=== PATIENT | male | born 1940 | race Caucasian/White ===

== ENCOUNTER 2017-05-23 12:09 | Inpatient (IN) | payer MEDICARE ==
[~2017-05-23] VITALS: Ht 185.4 cm; Wt 83.6 kg
[2017-05-23] MEDS ORDERED: IPRATROPIUM/ALBUTEROL SULFATE 3 ML SOLUTION IH ONE ×3 (12:36→22:26)
[2017-05-23 13:29] LABS: BASOPHILS % (AUTO) 0.2 % (0.0-5.0); EOSINOPHILS % (AUTO) 0.7 % (0.0-8.0); LYMPHOCYTES % (AUTO) 13.8 % (21.0-51.0); MONOCYTES % (AUTO) 11.9 % (3.0-13.0); NEUTROPHILS % (AUTO) 73.4 % (40.0-77.0); NUCLEATED RED BLOOD CELLS 0.1 % (0.0-0.19); PLATELET COUNT (AUTO) 230 K/uL (130-400); RED BLOOD CELL COUNT(AUTO) 4.54 MIL/uL (4.50-6.20); RED CELL DISTRIBUTION WIDTH 13.1 % (11.0-15.5); WHITE BLOOD COUNT (AUTO) 7.5 K/uL (4.8-10.8)
[2017-05-23] MEDS ORDERED: METHYLPREDNISOLONE SOD SUCC 40MG/ML 1ML ONE (13:41)
[2017-05-23 13:44] LABS: CREATININE 1.1 mg/dL (0.5-1.5); POTASSIUM 4.1 mmol/L (3.5-5.1)
[2017-05-23] MEDS ORDERED: SODIUM CHLORIDE 0.9% 1000ML 3,000 ML IV ONE (13:52)
[2017-05-23 13:57] LABS: ALBUMIN 3.4 g/dL (3.5-5.0); BILIRUBIN,TOTAL 0.4 mg/dL (0.2-1.0); CREATINE KINASE MB 0.7 ng/mL (0.5-3.6); TOTAL PROTEIN, SERUM 7.7 g/dL (6.0-8.3)
[2017-05-23 14:12] LABS: B-TYPE NATRIURETIC PEPTIDE 445 pg/mL (0-100)
[2017-05-23] MEDS ORDERED: ALBUTEROL SULFATE 0.083% 2.5 MG/3 ML INH IH ONE (14:59)
[2017-05-23 16:38] LABS: APPEARANCE,URINE Clear (CLEAR); BILIRUBIN,URINE Negative (NEGATIVE); COLOR,URINE Yellow (YELLOW); GLUCOSE, URINE (UA) Negative (NEGATIVE); KETONES,URINE Negative (NEGATIVE); LEUKOCYTE ESTERASE ,URINE Trace (NEGATIVE); NITRATE,URINE Negative (NEGATIVE); OCCULT BLOOD,URINE Negative (NEGATIVE); PROTEIN,URINE POS 1+ (NEGATIVE); UROBILINOGEN,URINE 0.2 mg/dL (0.2-1.0)
[2017-05-23 17:24] LABS: BACTERIA,URINE Rare /HPF (None Seen); RBC,URINE 0-1 /HPF (0-1)
[2017-05-23 17:25] LABS: MUCUS,URINE Few LPF (None Seen); SQUAMOUS EPITHELIAL CELL,UR Rare /LPF (0-2)
[2017-05-23] MEDS ORDERED: ACETAMINOPHEN EXTRA STRENGTH 500 MG TABLET PO PRN (17:45)
[2017-05-23] MEDS ORDERED: CEFTRIAXONE 1GM/D5W 50ML 50 ML IV SCH (17:45)
[2017-05-23] MEDS ORDERED: METHYLPREDNISOLONE SOD SUCC 40MG/ML 1ML IVP SCH (17:45)
[2017-05-23] MEDS ORDERED: ONDANSETRON HCL 4 MG/2 ML VIAL IVP PRN (17:45)
[2017-05-23 21:48] LABS: CREATINE KINASE MB < 0.5 ng/mL (0.5-3.6); CREATINE KINASE, TOTAL 84 U/L (21-232); MYOGLOBIN 55 ng/mL (10-92); TROPONIN I < 0.04 ng/mL (0.00-0.06)
[2017-05-23] MEDS ORDERED: CEFTRIAXONE SODIUM 1 GM ONE (23:03)
[2017-05-23] MEDS ORDERED: AZITHROMYCIN 500MG+NS 250ML 250 ML IV ONE (23:03)
[2017-05-23] MEDS ORDERED: ENOXAPARIN SODIUM 40 MG/0.4 ML SYRINGE SQ ONE (23:03)
[2017-05-24] MEDS ORDERED: IPRATROPIUM 0.5 MG/2.5 ML INH IH ONE ×3 (01:09→09:48)
[2017-05-24 05:57] LABS: CREATININE 1.1 mg/dL (0.5-1.5); MAGNESIUM 2.1 mg/dL (1.80-2.40); POTASSIUM 3.7 mmol/L (3.5-5.1)
[2017-05-24 06:52] LABS: CREATINE KINASE MB < 0.5 ng/mL (0.5-3.6); CREATINE KINASE, TOTAL 75 U/L (21-232); MYOGLOBIN 75 ng/mL (10-92); TROPONIN I < 0.04 ng/mL (0.00-0.06)
[2017-05-24] MEDS ORDERED: METHYLPREDNISOLONE SOD SUCC 40MG/ML 1ML ONE (07:49)
[2017-05-24] MEDS ORDERED: ENOXAPARIN SODIUM 30 MG/0.3 ML SQ SCH (09:00)
[2017-05-24 10:17] LABS: CREATINE KINASE MB 0.7 ng/mL (0.5-3.6); CREATINE KINASE, TOTAL 78 U/L (21-232); MYOGLOBIN 113 ng/mL (10-92); TROPONIN I < 0.04 ng/mL (0.00-0.06)
[2017-05-24] MEDS ORDERED: ASPIRIN 325MG EC TAB 325 MG TABLET.DR PO ONE (10:28)
[2017-05-24] MEDS ORDERED: PANTOPRAZOLE SODIUM 40 MG TABLET.DR PO ONE (10:28)
[2017-05-24] MEDS ORDERED: FUROSEMIDE 10 MG/ML 2ML VIAL ONE (10:29)
[2017-05-24 12:45] VITALS: BP 126/85
[2017-05-24] MEDS ORDERED: METO25TA6 PO (13:49)
[2017-05-24] MEDS ORDERED: LOVA20TA3 PO (13:49)
[2017-05-24] MEDS ORDERED: MAGN100T5 PO (13:49)
[2017-05-24] MEDS ORDERED: OMEG-53 PO (13:49)
[2017-05-24] MEDS: IPRATROPIUM 0.5 MG/2.5 ML INH IH PRN ×3 (14:05→22:00)
[2017-05-24] MEDS: FUROSEMIDE 10 MG/ML 4ML VIAL IV SCH ×3 (14:31→17:44)
[2017-05-24] MEDS: AZITHROMYCIN 500MG+NS 250ML 250 ML IV SCH ×2 (14:31→22:31)
[2017-05-24] MEDS: PANTOPRAZOLE SODIUM 40 MG TABLET.DR PO SCH (14:32)
[2017-05-24] MEDS: ASPIRIN 325MG EC TAB 325 MG TABLET.DR PO SCH (14:32)
[2017-05-24] MEDS: METHYLPREDNISOLONE SOD SUCC 125MG/2ML VIAL IVP SCH ×2 (14:32→17:44)
[2017-05-24] MEDS ORDERED: POTASSIUM CHLORIDE 10% ELIXIR 20 MEQ/15 ML UDCUP PO PRN (15:00)
[2017-05-24] MEDS ORDERED: POTASSIUM CHLORIDE 20MEQ/100ML 100 ML IV PRN (15:00)
[2017-05-24] MEDS ORDERED: LIDOCAINE HCL-MPF 1% 2ML VIAL IVP PRN (15:00)
[2017-05-24] MEDS ORDERED: POTASSIUM CHLORIDE 20 MEQ ERTAB PO ONE (15:39)
[2017-05-24 16:30] VITALS: BP 120/80
[2017-05-24] MEDS: POTASSIUM CHLORIDE 20 MEQ ERTAB PO PRN (17:50)
[2017-05-24 19:43] VITALS: BP 131/81
[2017-05-24] MEDS ORDERED: CEFTRIAXONE SODIUM 1 GM IVP SCH (21:00)
[2017-05-24] MEDS: ENOXAPARIN SODIUM 80 MG/0.8 ML SQ SCH (21:02)
[2017-05-24 23:48] VITALS: BP 126/72
[2017-05-25] MEDS: METHYLPREDNISOLONE SOD SUCC 125MG/2ML VIAL IVP SCH ×3 (02:10→17:42)
[2017-05-25 03:49] VITALS: BP 116/65
[2017-05-25] MEDS: FUROSEMIDE 10 MG/ML 4ML VIAL IV SCH ×2 (04:59→17:42)
[2017-05-25] MEDS: IPRATROPIUM 0.5 MG/2.5 ML INH IH PRN ×2 (06:33→09:59)
[2017-05-25] MEDS: PANTOPRAZOLE SODIUM 40 MG TABLET.DR PO SCH (06:51)
[2017-05-25 07:41] VITALS: BP 115/58
[2017-05-25 08:03] LABS: ABG BASE EXCESS 2.2 mmol/L (-2.0-3.0); ABG HCO3 25.6 mmol/L (21.0-28.0); ABG OXYGEN SATURATION 93.4 % (95.0-99.0); ABG PCO2 36 mmHg (35-48)
[2017-05-25] MEDS ORDERED: DILTIAZEM HCL 125 MG/25 ML 125 MG in SODIUM CHLORIDE 0.9% 100 ML IV PRN (08:15)
[2017-05-25] MEDS ORDERED: DILTIAZEM HCL 5 MG/ML 5 ML VIAL IVP PRN (08:15)
[2017-05-25] MEDS: ENOXAPARIN SODIUM 40 MG/0.4 ML SYRINGE SQ SCH (09:00)
[2017-05-25] MEDS: ASPIRIN 325MG EC TAB 325 MG TABLET.DR PO SCH (09:09)
[2017-05-25] MEDS: ENOXAPARIN SODIUM 80 MG/0.8 ML SQ SCH ×2 (09:09→20:44)
[2017-05-25 11:15] VITALS: BP 112/66
[2017-05-25 16:29] VITALS: BP 117/77
[2017-05-25 19:31] VITALS: BP 132/76
[2017-05-25] MEDS: ATORVASTATIN CALCIUM 10 MG TABLET PO SCH (20:43)
[2017-05-25] MEDS: AZITHROMYCIN 500MG+NS 250ML 250 ML IV SCH (23:43)
[2017-05-26] VITALS (7 sets, daily range): BP systolic 90–131; BP diastolic 57–81
[2017-05-26] MEDS: METHYLPREDNISOLONE SOD SUCC 125MG/2ML VIAL IVP SCH ×2 (02:08→08:29)
[2017-05-26] MEDS: FUROSEMIDE 10 MG/ML 4ML VIAL IV SCH ×2 (05:17→17:01)
[2017-05-26] MEDS: IPRATROPIUM 0.5 MG/2.5 ML INH IH PRN ×5 (06:11→23:03)
[2017-05-26] MEDS: PANTOPRAZOLE SODIUM 40 MG TABLET.DR PO SCH (06:33)
[2017-05-26] MEDS: ASPIRIN 325MG EC TAB 325 MG TABLET.DR PO SCH (08:29)
[2017-05-26] MEDS: ENOXAPARIN SODIUM 80 MG/0.8 ML SQ SCH ×2 (08:34→22:06)
[2017-05-26] MEDS: ENOXAPARIN SODIUM 40 MG/0.4 ML SYRINGE SQ SCH (08:35)
[2017-05-26] MEDS ORDERED: GUAIFENESIN-CODEINE 5 ML SYRUP PO PRN (09:45)
[2017-05-26 10:00] LABS: HEMATOCRIT 41.6 % (42-54); MEAN CORPUSCULAR HEMOGLOBIN 32.1 pg (27.0-33.0); MEAN CORPUSCULAR HGB CONC 33.3 g/dL (32.0-36.0); MEAN CORPUSCULAR VOLUME 96.4 fL (79-99); PLATELET COUNT (AUTO) 272 K/uL (130-400); RED BLOOD CELL COUNT(AUTO) 4.31 MIL/uL (4.50-6.20); RED CELL DISTRIBUTION WIDTH 12.9 % (11.0-15.5); WHITE BLOOD COUNT (AUTO) 11.9 K/uL (4.8-10.8)
[2017-05-26 10:10] LABS: CREATININE 1.2 mg/dL (0.5-1.5); MAGNESIUM 2.3 mg/dL (1.80-2.40); PHOSPHORUS 4.2 mg/dL (2.5-4.9); POTASSIUM 3.5 mmol/L (3.5-5.1)
[2017-05-26] MEDS: LEVOFLOXACIN 750 MG/D5W 150 ML 150 ML IV SCH (13:05)
[2017-05-26] MEDS ORDERED: LIDOCAINE HCL-MPF 1% 2ML VIAL IVP PRN (15:15)
[2017-05-26] MEDS ORDERED: POTASSIUM CHLORIDE 20 MEQ ERTAB PO PRN (15:15)
[2017-05-26] MEDS ORDERED: POTASSIUM CHLORIDE 10% ELIXIR 20 MEQ/15 ML UDCUP PO PRN (15:15)
[2017-05-26] MEDS ORDERED: POTASSIUM CHLORIDE 20MEQ/100ML 100 ML IV PRN (15:15)
[2017-05-26] MEDS: POTASSIUM CHLORIDE 20 MEQ ERTAB PO PRN ×2 (15:36→17:01)
[2017-05-26] MEDS ORDERED: BUDESONIDE 0.5 MG/2 ML INH IH ONE (18:11)
[2017-05-26] MEDS: BUDESONIDE 0.5 MG/2 ML INH IH SCH (18:30)
[2017-05-26] MEDS: ATORVASTATIN CALCIUM 10 MG TABLET PO SCH (20:15)
[2017-05-26] MEDS: METHYLPREDNISOLONE SOD SUCC 40MG/ML 1ML IVP SCH (20:15)
[2017-05-26] MEDS: METOPROLOL TARTRATE 25 MG TAB PO SCH (20:15)
[2017-05-26] MEDS ORDERED: ENOXAPARIN SODIUM 80 MG/0.8 ML SQ ONE (22:03)
[2017-05-27 00:12] VITALS: BP 121/81
[2017-05-27 04:32] VITALS: BP 113/71
[2017-05-27 05:16] LABS: HEMATOCRIT 37.3 % (42-54); MEAN CORPUSCULAR HEMOGLOBIN 33.1 pg (27.0-33.0); MEAN CORPUSCULAR HGB CONC 34.6 g/dL (32.0-36.0); MEAN CORPUSCULAR VOLUME 95.5 fL (79-99); PLATELET COUNT (AUTO) 244 K/uL (130-400); RED BLOOD CELL COUNT(AUTO) 3.91 MIL/uL (4.50-6.20); RED CELL DISTRIBUTION WIDTH 12.5 % (11.0-15.5); WHITE BLOOD COUNT (AUTO) 9.3 K/uL (4.8-10.8)
[2017-05-27 05:34] LABS: POTASSIUM 3.7 mmol/L (3.5-5.1)
[2017-05-27 05:38] LABS: BAND NEUTROPHILS % (MANUAL) 7 % (0-2); EOSINOPHILS % (MANUAL) 2 % (1-6); LYMPHOCYTES % (MANUAL) 13 % (22-44); MAN.DIFF COMMENT-IMPRESSION MANUAL DIFFERENTIAL; MONOCYTES % (MANUAL) 6 % (2-9); SEGMENTED NEUTROPHILS % 72 % (40-70)
[2017-05-27 05:39] LABS: PLATELET MORPHOLOGY COMMENT ADEQUATE
[2017-05-27] MEDS: IPRATROPIUM 0.5 MG/2.5 ML INH IH PRN ×5 (06:05→22:08)
[2017-05-27] MEDS: BUDESONIDE 0.5 MG/2 ML INH IH SCH ×2 (06:17→19:41)
[2017-05-27] MEDS: POTASSIUM CHLORIDE 20 MEQ ERTAB PO PRN ×2 (07:04→15:40)
[2017-05-27] MEDS: PANTOPRAZOLE SODIUM 40 MG TABLET.DR PO SCH (07:05)
[2017-05-27 07:46] VITALS: BP 132/86
[2017-05-27] MEDS: METHYLPREDNISOLONE SOD SUCC 40MG/ML 1ML IVP SCH ×2 (09:36→21:25)
[2017-05-27] MEDS: METOPROLOL TARTRATE 25 MG TAB PO SCH ×2 (09:37→21:25)
[2017-05-27] MEDS: ASPIRIN 325MG EC TAB 325 MG TABLET.DR PO SCH (09:37)
[2017-05-27] MEDS: LEVOFLOXACIN 750 MG/D5W 150 ML 150 ML IV SCH (09:37)
[2017-05-27] MEDS: FUROSEMIDE 10 MG/ML 4ML VIAL IV SCH ×2 (09:37→17:42)
[2017-05-27 11:17] VITALS: BP 115/75
[2017-05-27] MEDS: ENOXAPARIN SODIUM 80 MG/0.8 ML SQ SCH ×2 (11:51→21:27)
[2017-05-27 16:31] VITALS: BP 132/79
[2017-05-27 19:53] VITALS: BP 105/83
[2017-05-27] MEDS: ATORVASTATIN CALCIUM 10 MG TABLET PO SCH (21:25)
[2017-05-28 00:36] VITALS: BP 111/63
[2017-05-28 04:14] VITALS: BP 101/65
[2017-05-28] MEDS: BUDESONIDE 0.5 MG/2 ML INH IH SCH (06:19)
[2017-05-28 07:00] VITALS: BP 122/79
[2017-05-28] MEDS: PANTOPRAZOLE SODIUM 40 MG TABLET.DR PO SCH (08:22)
[2017-05-28] MEDS: ASPIRIN 325MG EC TAB 325 MG TABLET.DR PO SCH (10:50)
[2017-05-28] MEDS: ENOXAPARIN SODIUM 80 MG/0.8 ML SQ SCH (10:50)
[2017-05-28] MEDS: METOPROLOL TARTRATE 25 MG TAB PO SCH (10:50)
[2017-05-28] MEDS: METHYLPREDNISOLONE SOD SUCC 40MG/ML 1ML IVP SCH (10:50)
[2017-05-28] MEDS: LEVOFLOXACIN 750 MG/D5W 150 ML 150 ML IV SCH (10:50)
[2017-05-28] MEDS: FUROSEMIDE 10 MG/ML 4ML VIAL IV SCH (10:51)
[2017-05-28 11:00] VITALS: BP 121/77
== END 2017-05-28 13:33 | disposition home or self-care (01) | DRG 189 ==
LOC: EDH 12:09 → EDHIP 15:50 → 2AH 05-24 12:12
PROVIDERS: ADMIT Family Medicine; ATTEND Family Medicine
DX: J96.01 Acute respiratory failure with hypoxia (principal); I48.0 Paroxysmal atrial fibrillation; I95.9 Hypotension, unspecified; I45.10 Unspecified right bundle-branch block; J44.0 Chronic obstructive pulmonary disease with (acute) lower respiratory infection; I48.3 Typical atrial flutter; J44.1 Chronic obstructive pulmonary disease with (acute) exacerbation; I49.9 Cardiac arrhythmia, unspecified; J20.9 Acute bronchitis, unspecified; R00.0 Tachycardia, unspecified; M19.90 Unspecified osteoarthritis, unspecified site; Z87.891 Personal history of nicotine dependence; Z79.82 Long term (current) use of aspirin; Z91.81 History of falling; Z87.81 Personal history of (healed) traumatic fracture; Z79.899 Other long term (current) drug therapy
CPT/HCPCS: 36415; 36600; 71045; 80048; 80053; 81001; 82550; 82553; 82803; 83605; 83735; 83874; 83880; 84100; 84484; 85025; 85027; 87040; 87633; 87804; 93005; 93306; 94640; 94664; 99291; J0456; J0696; J1650; J1940; J1956; J2920; J2930; J3490; J7030